=== PATIENT | female | born 1995 | race Caucasian/White ===

== ENCOUNTER 2017-05-20 01:10 | Emergency (ER) | payer OTHER ==
[~2017-05-20] VITALS: Ht 160 cm; Wt 50.6 kg
[~2017-05-20 01:10] MED LIST: LORA10TA19 PO
[2017-05-20 01:19] VITALS: BP 127/74
[2017-05-20 01:29] VITALS: BP 127/74
--- NOTE | 2017-05-20 01:29 | NUR ---
PT AMBULATED TO CHAIR A
--- NOTE | 2017-05-20 01:30 | NUR ---
21 Y/O F W/C/O LOW BACK/SUPRAPUBIC PAIN/CHILLS X 1 WK. PT DENIES DYSURIA, FEVER, NAUSEA OR VOMITING. NO MED HX.
--- NOTE | 2017-05-20 02:13 | NUR ---
Dr. Sanchez evaluating patient.
[2017-05-20] MEDS ORDERED: KETOROLAC 30 MG/ML VIAL IM ONE (02:15)
--- NOTE | 2017-05-20 03:11 | NUR ---
Patient discharged with v/s stable. Written and verbal after care instructions given and explained. Patient alert, oriented and verbalized understanding of instructions. Ambulatory with steady gait. All questions addressed prior to discharge. ID band removed. Patient advised to follow up with PMD. Rx of NAPROSYN, VALIUM given. Patient educated on indication of medication including possible reaction and side effects. Opportunity to ask questions provided and answered.
== END 2017-05-20 03:11 | disposition home or self-care (01) ==
LOC: MED 01:10
DX: M54.5 Low back pain (principal); R10.9 Unspecified abdominal pain; Z79.899 Other long term (current) drug therapy
CPT/HCPCS: 74018; 81002; 81025; 96372; 99283; J1885

== ENCOUNTER 2017-06-21 23:35 | Emergency (ER) | payer OTHER ==
[~2017-06-21] VITALS: Ht 160 cm; Wt 50.1 kg
[2017-06-21 23:55] VITALS: BP 124/77
--- NOTE | 2017-06-22 00:22 | NUR ---
PT AMBULATED TO ER CHAIR D
--- NOTE | 2017-06-22 00:25 | NUR ---
PATIENT IS A 21 Y/O FEMALE WHO PRESENTS TO THE ED C/O TOOTHACHE AND SORE THROAT. PT STATES THAT HER TEETH STARTED BOTHERING HER ABOUT 3 DAYS. PT REPORTS 10/10 ACHING THROAT PAIN THAT DOES NOT RADIATE. PT DENIES CP, SOB, REPORTS NAUSEA DENIES VOMITING/DIARRHEA. PT AAOX4, RR EVEN/UNLABORED. PT REPOSITIONED FOR COMFORT, BED IN LOWEST POSITION. ER MD DR. REED NOTIFIED. WILL CONTINUE TO MONITOR.
[2017-06-22 00:49] VITALS: BP 119/72
--- NOTE | 2017-06-22 00:49 | NUR ---
Patient discharged with v/s stable. Written and verbal after care instructions given and explained. Patient alert, oriented and verbalized understanding of instructions. Ambulatory with steady gait. All questions addressed prior to discharge. ID band removed. Patient advised to follow up with PMD. Rx of AMOXICILLIN 500MG given. Patient educated on indication of medication including possible reaction and side effects. Opportunity to ask questions provided and answered.
== END 2017-06-22 00:49 | disposition home or self-care (01) ==
LOC: MED 23:35
DX: K04.7 Periapical abscess without sinus (principal); J06.9 Acute upper respiratory infection, unspecified; R03.0 Elevated blood-pressure reading, without diagnosis of hypertension; Z79.899 Other long term (current) drug therapy
CPT/HCPCS: 99283

== ENCOUNTER 2020-06-14 03:19 | Emergency (ER) | payer OTHER ==
[~2020-06-14] VITALS: Ht 160 cm; Wt 54.0 kg
[2020-06-14 03:22] VITALS: BP 102/64
--- NOTE | 2020-06-14 03:22 | NUR ---
to bed ambulatory
--- NOTE | 2020-06-14 03:30 | NUR ---
PATIENT PRESENTS TO ED WITH C/O PANICK ATTACK . PT STATES THIS IS THE 4TH OCCURENCE. DENIES N/V/D; SKIN IS PINK/WARM/DRY; AAOX4 IS VERY ANXIOUS AND TEARFUL, RR INCREASED. C/O CHEST DISCOMFORT AND HEADACHE PT DENIES ANY FEVER OR COUGH AT THIS TIME; VSS; PATIENT POSITIONED FOR COMFORT; HOB ELEVATED; BEDRAILS UP X2; BED DOWN. ER MD MADE AWARE OF PT STATUS. PMH : DENIES NKA
--- NOTE | 2020-06-14 03:53 | NUR ---
PT PRESSING EMERGENCY CALL LIGHT. VERY ANXIOUS, REASSURANCE GIVEN
--- NOTE | 2020-06-14 03:56 | NUR ---
DR. ERAZO AT BEDSIDE FOR EXAM
[2020-06-14] MEDS ORDERED: LORazepam 2 MG/ML VIAL IM ONE (04:00)
[2020-06-14] MEDS ORDERED: ALPR0.5T2 PO (04:01)
[2020-06-14 04:15] VITALS: BP 102/64
== END 2020-06-14 04:15 | disposition home or self-care (01) ==
LOC: MED 03:19
DX: F41.9 Anxiety disorder, unspecified (principal); Z79.899 Other long term (current) drug therapy
CPT/HCPCS: 96372; 99283; J2060

== ENCOUNTER 2021-01-18 21:02 | Emergency (ER) | payer OTHER ==
[~2021-01-18] VITALS: Ht 160 cm; Wt 52.8 kg
[~2021-01-18 21:02] MED LIST changes: +ALPR0.5T2 PO
[2021-01-18 21:25] VITALS: BP 117/71
--- NOTE | 2021-01-18 21:32 | NUR ---
PT AMBULATED TO LOBBY.
--- NOTE | 2021-01-18 22:13 | NUR ---
PT AMBULATED TO CHAIR A.
--- NOTE | 2021-01-18 22:41 | NUR ---
Dr. Ronquillo examining patient.
[2021-01-18] MEDS ORDERED: LORazepam 1 MG TAB PO ONE (22:50)
--- NOTE | 2021-01-18 23:01 | NUR ---
SEE COMPLETE ASSESSMENT.
[2021-01-18] MEDS ORDERED: ATA25 PO (23:02)
[2021-01-18 23:07] VITALS: BP 117/71
== END 2021-01-18 23:07 | disposition home or self-care (01) ==
LOC: MED 21:02
DX: F41.9 Anxiety disorder, unspecified (principal); Z79.899 Other long term (current) drug therapy
CPT/HCPCS: 99283